=== PATIENT | female | born 1980 | race Caucasian/White ===

== ENCOUNTER 2020-03-04 22:24 | Emergency (ER) | payer MEDICAID ==
[~2020-03-04] VITALS: Ht 152.4 cm; Wt 73.7 kg
[2020-03-04 22:42] VITALS: BP 115/89
[2020-03-04] MEDS ORDERED: ASPIRIN 325 MG TAB PO ONE (23:40)
[2020-03-04] MEDS ORDERED: PANTOPRAZOLE 40 MG INJ VIAL IVP ONE (23:40)
[2020-03-05 00:14] LABS: BASOPHILS % (AUTO) 0.3 % (0.0-2.0); EOSINOPHILS % (AUTO) 0.1 % (0.0-4.0); HEMATOCRIT 43.3 % (36-48); HEMOGLOBIN 14.5 g/dL (12.0-16.0); LYMPHOCYTES # (AUTO) 2.5 K/uL (2.5-16.5); LYMPHOCYTES % (AUTO) 17.8 % (20.5-51.1); MEAN CORPUSCULAR HEMOGLOBIN 32 pg (27-31); MEAN CORPUSCULAR HGB CONC 34 g/dL (33-37); MEAN CORPUSCULAR VOLUME 94.9 fL (80-94); MONOCYTES # (AUTO) 0.4 K/uL (0.8-1.0); MONOCYTES % (AUTO) 3.2 % (1.7-9.3); NEUTROPHILS % (AUTO) 78.6 % (42.2-75.2); PLATELET COUNT (AUTO) 355 K/uL (140-450); RED BLOOD CELL COUNT(AUTO) 4.57 MIL/uL (4.20-5.40); RED CELL DISTRIBUTION WIDTH 13.3 % (11.6-13.7)
[2020-03-05 00:34] LABS: ALBUMIN 3.5 g/dL (3.4-5.0); ANION GAP 17.2 (8-16); CARBON DIOXIDE 21.4 mmol/L (21-32); CREATININE 0.9 mg/dL (0.6-1.3); POTASSIUM 4.6 mmol/L (3.5-5.1); TOTAL BILIRUBIN 0.2 mg/dL (0.0-1.0)
[2020-03-05 02:46] VITALS: BP 105/61
== END 2020-03-05 02:46 | disposition home or self-care (01) ==
LOC: MED 22:24
DX: R07.89 Other chest pain (principal); R06.02 Shortness of breath; E78.5 Hyperlipidemia, unspecified
CPT/HCPCS: 36415; 71045; 80053; 84484; 85025; 93005; 96374; 99285; C9113; Q0092; 99283

== ENCOUNTER 2021-09-29 20:36 | Emergency (ER) | payer MEDICAID ==
[~2021-09-29] VITALS: Ht 144.8 cm; Wt 74.8 kg
[2021-09-29 21:06] VITALS: BP 133/105
[2021-09-29] MEDS ORDERED: KETOROLAC 60 MG/2 ML VIAL IM ONE (23:40)
--- NOTE | 2021-09-29 23:42 | NUR ---
Patient being evaluated by physician at bedside.
[2021-09-30] MEDS ORDERED: IBUP-2213 PO (00:11)
[2021-09-30 00:37] VITALS: BP 130/98
== END 2021-09-30 00:38 | disposition home or self-care (01) ==
LOC: MED 20:36
DX: S50.02XA Contusion of left elbow, initial encounter (principal); S09.90XA Unspecified injury of head, initial encounter; Z98.890 Other specified postprocedural states; W18.39XA Other fall on same level, initial encounter; Y93.89 Activity, other specified; Y92.89 Other specified places as the place of occurrence of the external cause; Y99.8 Other external cause status
CPT/HCPCS: 73080; 96372; 99283; J1885